=== PATIENT | female | born 1945 | race Caucasian/White ===

== ENCOUNTER 2017-11-23 15:56 | Emergency (ER) | payer OTHER ==
--- NOTE | 2017-11-23 16:23 | EDPHYS ---
Physician Documentation [facility] Name: Jessica Granados Age: 72 yrs Sex: Female : 1945 Arrival Date: 11/23/2017 Time: 16:00 Bed 19 Private MD: ED Physician Francisco Javier Carr HPI: 11/23 16:31 This 72 yrs old Female presents to ER via Ambulatory with complaints of Ear snw Pain, Sinus Pain. 16:31 The patient presents with itching to bilateral ears, congestion, denies fever. The snw complaints affect the right ear and left ear. Onset: The symptoms/episode began/occurred 2 day(s) ago, and became persistent. Modifying factors: The symptoms are alleviated by nothing, the symptoms are aggravated by nothing. The patient complains of pain to the forehead, right eye and left eye. The patient describes the headache as a pressure. Onset: The symptoms/episode began/occurred suddenly, 2 day(s) ago, and became persistent. Headache History: Other allergies. 16:34 Associated signs and symptoms: Pertinent positives: sore throat, rhinorrhea, sinus snw trouble. Severity of symptoms: At their worst the symptoms were mild. The patient has experienced similar episodes in the past, chronically. uses singulair, benadryl, flonase, and q 3 month steroid injections. Historical: - Allergies: 16:04 PENICILLINS; aa5 16:04 Sulfa (Sulfonamide Antibiotics); aa5 - Home Meds: 16:04 Singulair Oral [Active]; Benadryl Oral [Active]; Nasonex Nasal [Active]; aa5 - PMHx: 16:04 Seasonal allergies; aa5 - PSHx: 16:04 Hysterectomy; growth removed from left eyebrow; aa5 - Immunization history:: Pneumococcal vaccine is not up to date, Flu vaccine is not up to date. - Social history:: Smoking status: Patient uses tobacco products, smokes one-half pack cigarettes per day. - Ebola Screening: : No symptoms or risks identified at this time. ROS: 16:34 Constitutional: Negative for fever, chills, and weight loss, Eyes: Negative for injury, snw pain, redness, and discharge, Neck: Negative for injury, pain, and swelling, Cardiovascular: Negative for chest pain, palpitations, and edema, Respiratory: Negative for shortness of breath, cough, wheezing, and pleuritic chest pain, Abdomen/GI: Negative for abdominal pain, nausea, vomiting, diarrhea, and constipation, Back: Negative for injury and pain, : Negative for injury, bleeding, discharge, and swelling, MS/Extremity: Negative for injury and deformity, Skin: Negative for injury, rash, and discoloration, Neuro: Negative for headache, weakness, numbness, tingling, and seizure. 16:34 ENT: Positive for nasal discharge, sinus congestion, sore throat, itching to bilateral ear canals. Exam: 16:36 Constitutional: This is a well developed, well nourished patient who is awake, alert, snw and in no acute distress. Head/Face: Normocephalic, atraumatic. Eyes: Pupils equal round and reactive to light, extra-ocular motions intact. Lids and lashes normal. Conjunctiva and sclera are non-icteric and not injected. Cornea within normal limits. Periorbital areas with no swelling, redness, or edema. Neck: Trachea midline, no thyromegaly or masses palpated, and no cervical lymphadenopathy. Supple, full range of motion without nuchal rigidity, or vertebral point tenderness. No Meningismus. Chest/axilla: Normal chest wall appearance and motion. Nontender with no deformity. No lesions are appreciated. Cardiovascular: Regular rate and rhythm with a normal S1 and S2. No gallops, murmurs, or rubs. Normal PMI, no JVD. No pulse deficits. Respiratory: Lungs have equal breath sounds bilaterally, clear to auscultation and percussion. No rales, rhonchi or wheezes noted. No increased work of breathing, no retractions or nasal flaring. Abdomen/GI: Soft, non-tender, with normal bowel sounds. No distension or tympany. No guarding or rebound. No evidence of tenderness throughout. Back: No spinal tenderness. No costovertebral tenderness. Full range of motion. Skin: Warm, dry with normal turgor. Normal color with no rashes, no lesions, and no evidence of cellulitis. MS/ Extremity: Pulses equal, no cyanosis. Neurovascular intact. Full, normal range of motion. Neuro: Awake and alert, GCS 15, oriented to person, place, time, and situation. Cranial nerves II-XII grossly intact. Motor strength 5/5 in all extremities. Sensory grossly intact. Cerebellar exam normal. Normal gait. Psych: Awake, alert, with orientation to person, place and time. Behavior, mood, and affect are within normal limits. 16:36 ENT: External ear(s): are unremarkable, Ear canal(s): are normal, TM's: are normal, Nose: nasal drainage, that is minimal, and is seen coming from both nares, that is clear, Mouth: is normal, Posterior pharynx: no acute changes, Voice: is normal. Vital Signs: 16:05 BP 175 / 88; Pulse 98; Resp 18 S; Temp 98.4(TE); Pulse Ox 99% on R/A; Weight 52.16 kg aa5 (R); Height 5 ft. 4 in. (162.56 cm) (R); Pain 2/10; 16:05 Body Mass Index 19.74 (52.16 kg, 162.56 cm) aa5 MDM: 16:22 Patient medically screened. snw 16:36 Data reviewed: vital signs, nurses notes. Data interpreted: Pulse oximetry: on room air snw is 99 %. Interpretation: normal. Counseling: I had a detailed discussion with the patient and/or guardian regarding: the historical points, exam findings, and any diagnostic results supporting the discharge/admit diagnosis, the presence of at least one elevated blood pressure reading (>120/80) during this emergency department visit, the need for outpatient follow up, to return to the emergency department if symptoms worsen or persist or if there are any questions or concerns that arise at home. Special discussion: I have referred the patient to see his PCP for further evaluation of high blood pressure. Based on the history and exam findings, there is no indication for further emergent testing or inpatient evaluation. I discussed with the patient/guardian the need to see the logging crew foreman for further evaluation of the symptoms. Administered Medications: No medications were administered Disposition: 11/24 06:03 Co-signature as Attending Physician, Francisco Javier Carr MD I agree with the assessment and kdr plan of care. Disposition: 11/23/17 16:22 Discharged to Home. Impression: Allergy, unspecified, Otalgia, bilateral. - Condition is Stable. - Discharge Instructions: Allergies, Adult, Heat Therapy. - Medication Reconciliation Form, Thank You Letter, Antibiotic Education, Prescription Opioid Use form. - Follow up: Private Physician; When: 2 - 3 days; Reason: Recheck today's complaints, Continuance of care, Re-evaluation by your physician. Follow up: Emergency Department; When: As needed; Reason: Worsening of condition. Signatures: Francisco Javier Carr MD MD [facility] Tami Espinal, CHIP MIXER-C CHIP MIXER-Csnw Basil Escalante, AUTOMOTIVE MECHANICAL ENGINEER AUTOMOTIVE MECHANICAL ENGINEER em Radha Ascencio, RN RN aa5 Corrections: (The following items were deleted from the chart) 11/23 16:50 16:22 11/23/2017 16:22 Discharged to Home. Impression: Allergy, unspecified; Otalgia, em bilateral. Condition is Stable. Forms are Medication Reconciliation Form, Thank You Letter, Antibiotic Education, Prescription Opioid Use. Follow up: Private Physician; When: 2 - 3 days; Reason: Recheck today's complaints, Continuance of care, Re-evaluation by your physician. Follow up: Emergency Department; When: As needed; Reason: Worsening of condition. snw
--- NOTE | 2017-11-23 16:23 | ER ---
Nurse's Notes [facility] Name: Jessica Granados Age: 72 yrs Sex: Female : 1945 Arrival Date: 11/23/2017 Time: 16:00 Bed 19 Private MD: Diagnosis: Allergy, unspecified;Otalgia, bilateral Presentation: 11/23 16:02 Presenting complaint: Patient states: sinus pain, bere ear pain, and chills x 2-3 days aa5 ago. Pt also reports slight cough. Transition of care: patient was not received from another setting of care. Onset of symptoms was November 2017. Risk Assessment: Do you want to hurt yourself or someone else? Patient reports no desire to harm self or others. Initial Sepsis Screen: Does the patient meet any 2 criteria? No. Patient's initial sepsis screen is negative. Does the patient have a suspected source of infection? No. Patient's initial sepsis screen is negative. Care prior to arrival: None. 16:02 Method Of Arrival: Ambulatory aa5 16:02 Acuity: CORTNEY 3 aa5 Historical: - Allergies: 16:04 PENICILLINS; aa5 16:04 Sulfa (Sulfonamide Antibiotics); aa5 - Home Meds: 16:04 Singulair Oral [Active]; Benadryl Oral [Active]; Nasonex Nasal [Active]; aa5 - PMHx: 16:04 Seasonal allergies; aa5 - PSHx: 16:04 Hysterectomy; growth removed from left eyebrow; aa5 - Immunization history:: Pneumococcal vaccine is not up to date, Flu vaccine is not up to date. - Social history:: Smoking status: Patient uses tobacco products, smokes one-half pack cigarettes per day. - Ebola Screening: : No symptoms or risks identified at this time. Screenin:15 Abuse screen: Denies threats or abuse. Nutritional screening: No deficits noted. em Tuberculosis screening: No symptoms or risk factors identified. Fall Risk None identified. Assessment: 16:07 General: Appears in no apparent distress. comfortable, Behavior is calm, cooperative. em Pain: Complains of pain in left eye and right eye and left ear and right ear. Neuro: Level of Consciousness is awake, alert, obeys commands, Oriented to person, place, time, situation, Gait is steady, Speech is normal. Cardiovascular: Capillary refill < 3 seconds Patient's skin is warm and dry. Respiratory: Airway is patent Respiratory effort is even, unlabored, Respiratory pattern is regular, symmetrical. GI: Abdomen is flat. : No signs and/or symptoms were reported regarding the genitourinary system. EENT: Ear canal pain in bere. ears. Derm: Skin is intact, Skin is pink, warm \T\ dry. Musculoskeletal: Range of motion: intact in all extremities. 16:10 General: The previous assessment is accurate, call light remains within reach. . ss Vital Signs: 16:05 BP 175 / 88; Pulse 98; Resp 18 S; Temp 98.4(TE); Pulse Ox 99% on R/A; Weight 52.16 kg aa5 (R); Height 5 ft. 4 in. (162.56 cm) (R); Pain 2/10; 16:05 Body Mass Index 19.74 (52.16 kg, 162.56 cm) aa5 ED Course: 16:00 Patient arrived in ED. tw3 16:02 [facility] Espinal [facility]C [facility] snw 16:02 Francisco Javier Carr MD is Attending Physician. snw 16:03 Triage completed. aa5 16:03 Arm band placed on. aa5 16:15 Patient has correct armband on for positive identification. Bed in low position. Call em light in reach. 16:15 No provider procedures requiring assistance completed. Patient did not have IV access em during this emergency room visit. 16:16 Basil Escalante LVN is Primary Nurse. em Administered Medications: No medications were administered Outcome: 16:22 Discharge ordered by . snw 16:47 Discharged to home ambulatory. em 16:47 Condition: good 16:47 Discharge instructions given to patient, Instructed on discharge instructions, follow up and referral plans. Demonstrated understanding of instructions, follow-up care. 16:50 Patient left the ED. em Signatures: Tami Espinal FNP-C HORTICULTURE/FLORICULTURE TEACHER-CsnBasil Llanos LVN LVN em Radha Ascencio, RN RN aa5 Yessy Horan RN RN ss Wade, Cate tw3
== END 2017-11-23 16:50 | disposition home or self-care (01) ==
LOC: ER 15:56
DX: H92.03 Otalgia, bilateral (principal); T78.40XA Allergy, unspecified, initial encounter; Z88.0 Allergy status to penicillin; Z88.2 Allergy status to sulfonamides
CPT/HCPCS: 99281

== ENCOUNTER 2019-01-10 20:07 | Emergency (ER) | payer OTHER ==
--- NOTE | 2019-01-10 20:45 | ER ---
Nurse's Notes [facility] Name: Jessica Granados Age: 73 yrs Sex: Female : 1945 Arrival Date: 01/10/2019 Time: 20:10 Bed 17 Private MD: Diagnosis: Laceration without foreign body of right forearm-skin tear Presentation: 01/10 20:19 Presenting complaint: Patient states: "pulled band aid today on a smaller cut and it jd3 pulled off quite a bit of skin.". Transition of care: patient was not received from another setting of care. Onset of symptoms was January 10, 2019. Risk Assessment: Do you want to hurt yourself or someone else? Patient reports no desire to harm self or others. Initial Sepsis Screen: Does the patient meet any 2 criteria? No. Patient's initial sepsis screen is negative. Does the patient have a suspected source of infection? No. Patient's initial sepsis screen is negative. Care prior to arrival: None. 20:19 Method Of Arrival: Ambulatory jd3 20:19 Acuity: CORTNEY 4 jd3 20:20 Note wound dressed. wound noted to right forearm. jd3 Triage Assessment: 20:30 Injury Description: skin tear on right lower arm. sr6 Historical: - Allergies: 20:21 PENICILLINS; jd3 20:21 Sulfa (Sulfonamide Antibiotics); jd3 20:21 Iodine; jd3 - Home Meds: 20:21 Singulair Oral [Active]; jd3 - PMHx: 20:21 seasonal allergies; jd3 - PSHx: 20:21 Hysterectomy; growth removed from left eyebrow; jd3 - Immunization history:: Adult Immunizations up to date. - Social history:: Smoking status: Patient uses tobacco products, smokes one pack cigarettes per day. - Ebola Screening: : Patient negative for fever greater than or equal to 101.5 degrees Fahrenheit, and additional compatible Ebola Virus Disease symptoms. Screenin:30 Abuse screen: Denies threats or abuse. Denies injuries from another. Nutritional sr6 screening: No deficits noted. Tuberculosis screening: No symptoms or risk factors identified. Fall Risk None identified. Assessment: 20:30 General: Appears in no apparent distress. Behavior is calm, cooperative, appropriate sr6 for age. Pain: Denies pain. Neuro: Level of Consciousness is awake, alert, obeys commands, Oriented to person, place, time, situation, Appropriate for age. Cardiovascular: Capillary refill < 3 seconds. Respiratory: Airway is patent Respiratory effort is even, unlabored, Respiratory pattern is regular, symmetrical. GI: Abdomen is flat, non-distended. : No signs and/or symptoms were reported regarding the genitourinary system. EENT: No signs and/or symptoms were reported regarding the EENT system. Derm: skin tear on right lower arm. Musculoskeletal: Circulation, motion, and sensation intact. Vital Signs: 20:22 Pulse 93; Resp 19 S; Temp 98.3(O); Pulse Ox 97% on R/A; Weight 54.43 kg (R); Height 5 jd3 ft. 4 in. (162.56 cm) (R); Pain 0/10; 20:22 Body Mass Index 20.60 (54.43 kg, 162.56 cm) jd3 ED Course: 20:10 Patient arrived in ED. cl3 20:20 Triage completed. jd3 20:23 Arm band placed on. jd3 20:24 Raina Hardy FNP-C is PHCP. kb 20:24 Erlin French MD is Attending Physician. kb 20:30 Patient has correct armband on for positive identification. Bed in low position. Call sr6 light in reach. Side rails up X 1. Pulse ox on. NIBP on. 20:50 No provider procedures requiring assistance completed. Patient did not have IV access sr6 during this emergency room visit. Administered Medications: No medications were administered Outcome: 20:45 Discharge ordered by . kb 20:50 Discharged to home sr6 20:50 Condition: stable 20:50 Discharge instructions given to patient, family. 20:58 Patient left the ED. sr6 Signatures: Raina Hardy FNP-C FNP-Ckb Davies, Jonathon, RN RN jd3 Audrey Dubois sr6 Xiomy Cuenca cl3
--- NOTE | 2019-01-10 20:45 | EDPHYS ---
Physician Documentation [facility] Name: Jessica Granados Age: 73 yrs Sex: Female : 1945 Arrival Date: 01/10/2019 Time: 20:10 Bed 17 Private MD: GABE Physician Erlin French HPI: 01/10 20:43 This 73 yrs old Female presents to ER via Ambulatory with complaints of Arm kb Injury - SCRAP. 20:43 The patient has a laceration related to: pulled bandaid off and it pulled skin off as kb well occurred at home, and there are no complicating factors. The injury was accidental. The laceration(s) is(are) located on the dorsal aspect of right forearm. Onset: The symptoms/episode began/occurred just prior to arrival. Associated signs and symptoms: The patient has no apparent associated signs or symptoms. The patient has not experienced similar symptoms in the past. The patient has not recently seen a physician. Pt reports she had a small abrasion on her forearm that her granddaughter put a bandaid on. Today she pulled bandaid off and the skin came off with it. . Historical: - Allergies: 20:21 PENICILLINS; jd3 20:21 Sulfa (Sulfonamide Antibiotics); jd3 20:21 Iodine; jd3 - Home Meds: 20:21 Singulair Oral [Active]; jd3 - PMHx: 20:21 seasonal allergies; jd3 - PSHx: 20:21 Hysterectomy; growth removed from left eyebrow; jd3 - Immunization history:: Adult Immunizations up to date. - Social history:: Smoking status: Patient uses tobacco products, smokes one pack cigarettes per day. - Ebola Screening: : Patient negative for fever greater than or equal to 101.5 degrees Fahrenheit, and additional compatible Ebola Virus Disease symptoms. ROS: 20:41 Constitutional: Negative for fever, chills, and weight loss, Cardiovascular: Negative kb for chest pain, palpitations, and edema, Respiratory: Negative for shortness of breath, cough, wheezing, and pleuritic chest pain, Abdomen/GI: Negative for abdominal pain, nausea, vomiting, diarrhea, and constipation, Back: Negative for injury and pain, MS/Extremity: Negative for injury and deformity, Neuro: Negative for headache, weakness, numbness, tingling, and seizure. 20:41 Skin: Positive for of the dorsal aspect of right forearm, skin tear. Exam: 20:41 Constitutional: This is a well developed, well nourished patient who is awake, alert, kb and in no acute distress. Head/Face: Normocephalic, atraumatic. Neck: Trachea midline, no thyromegaly or masses palpated, and no cervical lymphadenopathy. Supple, full range of motion without nuchal rigidity, or vertebral point tenderness. No Meningismus. Chest/axilla: Normal chest wall appearance and motion. Nontender with no deformity. No lesions are appreciated. Cardiovascular: Regular rate and rhythm with a normal S1 and S2. No gallops, murmurs, or rubs. Normal PMI, no JVD. No pulse deficits. Respiratory: Lungs have equal breath sounds bilaterally, clear to auscultation and percussion. No rales, rhonchi or wheezes noted. No increased work of breathing, no retractions or nasal flaring. Abdomen/GI: Soft, non-tender, with normal bowel sounds. No distension or tympany. No guarding or rebound. No evidence of tenderness throughout. MS/ Extremity: Pulses equal, no cyanosis. Neurovascular intact. Full, normal range of motion. Neuro: Awake and alert, GCS 15, oriented to person, place, time, and situation. Cranial nerves II-XII grossly intact. Motor strength 5/5 in all extremities. Sensory grossly intact. Cerebellar exam normal. Normal gait. 20:41 Skin: injury, skin tear to right forearm. Vital Signs: 20:22 Pulse 93; Resp 19 S; Temp 98.3(O); Pulse Ox 97% on R/A; Weight 54.43 kg (R); Height 5 jd3 ft. 4 in. (162.56 cm) (R); Pain 0/10; 20:22 Body Mass Index 20.60 (54.43 kg, 162.56 cm) jd3 MDM: 20:24 Patient medically screened. kb 20:40 Data reviewed: vital signs, nurses notes. Data interpreted: Pulse oximetry: on room air kb is 97 %. Interpretation: normal. Counseling: I had a detailed discussion with the patient and/or guardian regarding: the historical points, exam findings, and any diagnostic results supporting the discharge/admit diagnosis, the need for outpatient follow up, a family practitioner, to return to the emergency department if symptoms worsen or persist or if there are any questions or concerns that arise at home. 01/10 20:46 Order name: Wound Care; Complete Time: 20:50 kb Administered Medications: No medications were administered Disposition: 01/10/19 20:45 Discharged to Home. Impression: Laceration without foreign body of right forearm - skin tear. - Condition is Stable. - Discharge Instructions: Skin Tear Care, [id number]. - Medication Reconciliation Form, Thank You Letter, Antibiotic Education, Prescription Opioid Use form. - Follow up: Emergency Department; When: As needed; Reason: Worsening of condition. Follow up: Private Physician; When: 2 - 3 days; Reason: Recheck today's complaints, Continuance of care, Re-evaluation by your physician. Addendum: 01/13/2019 09:22 Co-signature as Attending Physician, Erlin French MD I agree with the assessment and c tam plan of care. Signatures: Raina Hardy, BUTTON TUFTING MACHINE OPERATOR-C BUTTON TUFTING MACHINE OPERATOR-Ckb Erlin French MD MD cha Davies, Jonathon, RN RN Audrey Cobos sr6 Corrections: (The following items were deleted from the chart) 01/10 20:58 20:45 01/10/2019 20:45 Discharged to Home. Impression: Laceration without foreign body sr6 of right forearm - skin tear. Condition is Stable. Forms are Medication Reconciliation Form, Thank You Letter, Antibiotic Education, Prescription Opioid Use. Follow up: Emergency Department; When: As needed; Reason: Worsening of condition. Follow up: Private Physician; When: 2 - 3 days; Reason: Recheck today's complaints, Continuance of care, Re-evaluation by your physician. kb
[2019-01-10 21:46] VITALS: TEMP 98.3; O2SAT 97
== END 2019-01-10 20:58 | disposition home or self-care (01) ==
LOC: ER 20:07
DX: S51.811A Laceration without foreign body of right forearm, initial encounter (principal); F17.210 Nicotine dependence, cigarettes, uncomplicated; J30.2 Other seasonal allergic rhinitis; Z88.0 Allergy status to penicillin; Z88.2 Allergy status to sulfonamides; Z91.048 Other nonmedicinal substance allergy status
CPT/HCPCS: 99282